=== PATIENT | male | born 1960 | race Caucasian/White ===

== ENCOUNTER → 2017-03-27 | Emergency (ER) | payer OTHER ==
[~2017-03-27] MED LIST: ACETAMINOPHEN 1000 MG/100 ML VIAL (NON FORMULARY) IVPB ONE; ACETAMINOPHEN 325 MG TABLET (FP) ONE; ACETAMINOPHEN 325 MG TABLET (FP) PO ONE; LORazepam 0.5 MG TABLET ONE; LORazepam 1 MG TABLET PO ONE; POTASSIUM CHLORIDE TABS 20 MEQ TABLET.ER (FP) PO ONE; SODIUM CHLORIDE 0.9% 1000 ML INFUS.BAG IV ONE; SODIUM CHLORIDE 1,000 ML IV STA
[2017-03-27 17:58] VITALS: BMI 28.2
--- NOTE | 2017-03-27 18:21 | PDOC ---
History of Present Illness - General Chief Complaint: Blood Pressure Problem Stated Complaint: BP PROBLEM/NUMBNESS/ TINGLY Time Seen by Provider: 03/27/17 18:06 History Source: Patient - History of Present Illness Associated Symptoms: reports: malaise, weakness. denies: chest pain, cough, diaphoresis, fever/chills, headaches, nausea/vomiting, shortness of breath, syncope Past History - Past Medical History Allergies/Adverse Reactions: Allergies Allergy/AdvReac Type Severity Reaction Status Date / Time No Known Allergies Allergy Verified 03/27/17 17:57 Home Medications: Ambulatory Orders Lisinopril [Prinivil] 10 mg PO DAILY #30 tablet 11/17/14 HTN: Yes - Psycho/Social/Smoking Cessation Hx Anxiety: No Suicidal Ideation: No Smoking History: Never smoked Have you smoked in the past 12 months: No Hx Alcohol Use: Yes (SOCIAL) Drug/Substance Use Hx: No Substance Use Type: None Hx Substance Use Treatment: No Review of Systems - Review of Systems Constitutional: Yes: Malaise. No: Chills, Fever HEENTM: No: Blurred Vision Respiratory: No: Cough, Shortness of Breath Cardiac (ROS): No: Chest Pain, Lightheadedness, Palpitations ABD/GI: No: Diarrhea, Nausea, Vomiting : No: Dysuria Neurological: Yes: Numbness, Tingling. No: Headache, Dizziness *Physical Exam - Vital Signs Last Vital Signs Temp Pulse Resp BP Pulse Ox 98.3 F 83 20 126/105 99 03/27/17 17:53 03/27/17 17:53 03/27/17 17:53 03/27/17 17:53 03/27/17 17:53 - Physical Exam General Appearance: Yes: Appropriately Dressed. No: Apparent Distress HEENT: positive: Normal Voice. negative: Scleral Icterus (R), Scleral Icterus ( L) Neck: positive: Supple. negative: Tender, Decreased range of motion Respiratory/Chest: positive: Lungs Clear, Normal Breath Sounds. negative: Respiratory Distress Cardiovascular: positive: Regular Rate, S1, S2 Gastrointestinal/Abdominal: positive: Soft. negative: Tender Extremity: positive: Normal Inspection Integumentary: positive: Dry, Warm Neurologic: positive: Fully Oriented, Alert, Normal Mood/Affect ED Treatment Course - RADIOLOGY Radiology Studies Ordered: Category Date Time Status CHEST X-RAY PORTABLE* [RAD] Stat Radiology 03/27/17 18:09 Ordered Medical Decision Making - Medical Decision Making 03/27/17 18:12 56-year-old male, history of hypertension, here with numbness and tingling to bilateral upper extremity and face that started this a.m and has been intermittent throughout the day. No neck pain, MARSH, dizziness, visual changes, focal weakness. Also reports that for the past 4 days, he has had malaise with body aches and congestion and suspect that he had "the flu". Denies any fever, chills, change to BM, CP or SOB. No recent travel or sick contacts See exam Numbness/tingling to b/l UE and face today No prior episode No new meds No neck pain No h/o anxiety BP 126/102, stable otherwise w/ unremarkable exam and no focal neuro deficits Etiology unclear at this time -check basic labs and electrolytes Malaise w/ uri Possibly viral -ekk/cxr/ labs -IVF 03/27/17 18:21
[2017-03-27 19:10] LABS: BASOPHIL 0.5 % (0-2.0); EOSINOPHIL 0.2 % (0-4.5); MCH 28.4 pg (25.7-33.7); MCHC 33.2 g/dl (32.0-35.9); MEAN CELL VOLUME 85.3 fl (80-96); MEAN PLT VOLUME 8.7 fl (7.5-11.1); NEUTROPHILS 59.6 % (42.8-82.8); PLATELET COUNT 168 K/MM3 (134-434); RDW 13.2 % (11.9-15.9); WHITE BLOOD COUNT 4.7 K/mm3 (4.0-10.0)
[2017-03-27 19:33] LABS: ALBUMIN 3.9 g/dl (3.4-5.0); ANION GAP 12 (8-16); BILIRUBIN,TOTAL 0.3 mg/dL (0.2-1.0); CALCIUM 8.8 mg/dL (8.5-10.1); CO2 30 mmol/L (21-32); CREATININE 1.7 mg/dL (0.7-1.3); GLUCOSE,RANDOM 114 mg/dL (74-106); SGOT/AST 41 U/L (15-37); SGPT/ALT 66 U/L (12-78); TOT PROT 7.6 g/dl (6.4-8.2)
[2017-03-27 19:36] LABS: ALK PHOS 35 U/L (45-117); TROPONIN I < 0.02 ng/ml (0.00-0.05)
[2017-03-27 20:06] LABS: URINE APPEARANCE CLEAR; URINE BILIRUBIN NEGATIVE (NEGATIVE); URINE BLOOD NEGATIVE (NEGATIVE); URINE COLOR LTYELLOW; URINE GLUCOSE (UA) NEGATIVE (NEGATIVE); URINE KETONE NEGATIVE (NEGATIVE); URINE LEUK ESTERASE NEGATIVE (NEGATIVE); URINE NITRITE NEGATIVE (NEGATIVE); URINE PROTEIN NEGATIVE (NEGATIVE); URINE UROBILINOGEN NEGATIVE E.U./dl (0.2-1.0)
[2017-03-27 20:15] LABS: URINE MARIJUANA THC NEGATIVE ng/ml (CUTOFF=50)
--- NOTE | 2017-03-27 20:50 | PDOC ---
*Physical Exam - Vital Signs Last Vital Signs Temp Pulse Resp BP Pulse Ox 98.3 F 83 20 126/105 99 03/27/17 17:53 03/27/17 17:53 03/27/17 17:53 03/27/17 17:53 03/27/17 17:53 ED Treatment Course - LABORATORY CBC & Chemistry Diagram: 03/27/17 18:30 03/27/17 23:28 - ADDITIONAL ORDERS Additional order review: Laboratory Results 03/27/17 03/27/17 03/27/17 19:55 19:55 18:30 Sodium 139 Potassium 3.0 L Chloride 97 L Carbon Dioxide 30 Anion Gap 12 BUN 20 H Creatinine 1.7 H D Creat Clearance w eGFR 42.21 Random Glucose 114 H Calcium 8.8 Magnesium 2.0 Total Bilirubin 0.3 D AST 41 H D ALT 66 D Alkaline Phosphatase 35 L D Creatine Kinase 147 Troponin I < 0.02 Total Protein 7.6 Albumin 3.9 Urine Color Ltyellow Urine Appearance Clear Urine pH 8.0 D Urine Protein Negative Urine Glucose (UA) Negative Urine Ketones Negative Urine Blood Negative Urine Nitrite Negative Urine Bilirubin Negative Urine Urobilinogen Negative Ur Leukocyte Esterase Negative Opiates Screen Negative Methadone Screen Negative Barbiturate Screen Negative Phencyclidine Screen Negative Ur Amphetamines Screen Negative MDMA (Ecstasy) Screen Negative Benzodiazepines Screen Negative Cocaine Screen Negative U Marijuana (THC) Screen Negative 03/27/17 18:30 RBC 5.43 MCV 85.3 MCHC 33.2 RDW 13.2 MPV 8.7 Neutrophils % 59.6 Lymphocytes % 24.7 Monocytes % 15.0 H D Eosinophils % 0.2 D Basophils % 0.5 - Medications Given in the ED: ED Medications Discontinued Medications Generic Name Dose Route Start Last Admin Trade Name Freq PRN Reason Stop Dose Admin Sodium Chloride 1,000 mls @ 1,000 mls/hr 03/27/17 18:09 03/27/17 18:00 Normal Saline - IV 03/27/17 19:08 1,000 mls/hr ASDIR STA Administration Lorazepam 1 mg 03/27/17 19:17 03/27/17 19:26 Ativan - PO 03/27/17 19:18 1 mg ONCE ONE Administration Potassium Chloride 40 meq 03/27/17 19:40 03/27/17 19:56 K-Dur - PO 03/27/17 19:41 40 meq ONCE ONE Administration Sodium Chloride 1,000 ml 03/27/17 19:41 03/27/17 19:56 Normal Saline - IV 03/27/17 19:42 1,000 ml ONCE ONE Administration Medical Decision Making - Medical Decision Making 03/27/17 20:45 Patient endorsed to me by MERRITT Burroughs. seen and examined now c/o right sided flank pain x few days p/e mild RCVAT will get UA, tylenol for pain, given ativan 1mg po for tingling in the fingers. 03/27/17 20:49 Laboratory Tests 03/27/17 18:30 Sodium 139 Potassium 3.0 L Chloride 97 L Carbon Dioxide 30 Anion Gap 12 BUN 20 H Creatinine 1.7 H D Creat Clearance w eGFR 42.21 Random Glucose 114 H AST 41 H D ALT 66 D Alkaline Phosphatase 35 L D Creatine Kinase 147 noted to have elevated bun/creat possible dehydration will continue IVF. UA has no blood but will also r/o stones. 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 Rule out kidney stones. Findings : Subsegmental dependent atelectatic changes are noted bilaterally. Calcified granulomata are noted in the lung bases. Hepatic steatosis is noted with sparing around the gallbladder fossa. The gallbladder spleen and pancreas all have a normal unenhanced appearance. The adrenal glands are unremarkable. A cortical hyperdense lesion in the right kidney measures 1.8 cm in diameter. Punctate nonobstructing calculi noted in the right kidney. The kidneys have a normal unenhanced appearance. There is no hydronephrosis or hydroureter. The gastrointestinal tract does not appear obstructed. No thickened or dilated bowel is seen. The appendix has a normal appearance. There is no mesenteric infiltration or free fluid. The urinary bladder, prostate and seminal vesicles are unremarkable. No abdominal or pelvic adenopathy is seen. No lytic or blastic destructive osseous lesions are seen. Impression: Nonobstructing calculi noted in the right kidney. No obstructing urinary tract calculi or evidence of urinary tract obstruction seen. No inflammatory process identified in the abdomen or pelvis. No abdominal mass, adenopathy or collection seen. THIS DOCUMENT HAS BEEN ELECTRONICALLY SIGNED Juan Carlos Bustos M.D. 03/27/2017 23: 23 VILMA Wen Please call Imaging Director Drug [phone] ([phone]) with questions. 03/28/17 00:53 Laboratory Tests 03/27/17 23:28 Sodium 140 Potassium 3.2 L Chloride 102 Carbon Dioxide 28 Anion Gap 10 BUN 19 H Creatinine 1.3 D Random Glucose 106 Calcium 8.4 L repeat chemistry improved with hydration will inst to continue fluids and bananas I discussed the physical exam findings, ancillary test results and final diagnoses with the patient. I answered all of the patient's questions. The patient was satisfied with the care received and felt comfortable with the discharge plan and treatment plan. The Patient agrees to follow up with the primary care physician within 24-72 hours. *DC/Admit/Observation/Transfer Diagnosis at time of Disposition: Weakness, Paresthesia - Discharge Dispostion Disposition: HOME Condition at time of disposition: Stable - Referrals Referrals: Roderick Andino MD [Primary Care Provider] - - Patient Instructions Printed Discharge Instructions: DI for Muscle Weakness Additional Instructions: YOU MUST FOLLOW WITH YOUR PMD WITHIN 1-2 DAYS, CONTINUE TO HYDRATE, EAT BANANA AND DRINK ORANGE JUICE TO INCREASE THE POTASSIUM, RETURN TO THE ED IF WORSENING
[2017-03-28 00:22] LABS: ANION GAP 10 (8-16); CALCIUM 8.4 mg/dL (8.5-10.1); CO2 28 mmol/L (21-32); CREATININE 1.3 mg/dL (0.7-1.3); GLUCOSE,RANDOM 106 mg/dL (74-106)
[2017-03-28 01:20] VITALS: BP 150/94; PULSE 68; TEMP 98.2
--- NOTE | 2017-03-28 14:20 | EKG ---
Test Reason : Blood Pressure : / mmHG Vent. Rate : 070 BPM Atrial Rate : 070 BPM P-R Int : 146 ms QRS Dur : 098 ms QT Int : 382 ms P-R-T Axes : 045 -16 049 degrees QTc Int : 412 ms NORMAL SINUS RHYTHM POSSIBLE LEFT ATRIAL ENLARGEMENT INCOMPLETE RIGHT BUNDLE BRANCH BLOCK NONSPECIFIC ST AND T WAVE ABNORMALITY ABNORMAL ECG WHEN COMPARED WITH ECG OF 16-NOV-2014 19:14, T WAVE VARIATION Confirmed by HEMA SARAVIA, FAN ([id number]) on 03/28/2017 2:20:41 PM Referred By: Confirmed By:FAN GARRIDO MD
== END | disposition home or self-care (01) ==
LOC: JER 17:51
PROC: 3E0337Z Introduction of Electrolytic and Water Balance Substance into Peripheral Vein, Percutaneous Approach (ICD-10-PCS; principal; 2017-03-27)
DX: R20.8 Other disturbances of skin sensation (principal); R53.1 Weakness; E87.6 Hypokalemia; I10 Essential (primary) hypertension
CPT/HCPCS: 36415; 71010-TC; 74176-TC; 80048; 80053; 80307; 81003; 82550; 83735; 84484; 85025; 93005; 93010; 99284-25

== ENCOUNTER 2018-12-22 06:39 | Observation (INO) | payer OTHER ==
--- NOTE | 2018-12-22 07:11 | PDOC ---
History of Present Illness - General Chief Complaint: Blood Pressure Problem Stated Complaint: HEADACHE,BP PROBLEM - History of Present Illness Initial Comments: The pt is a 58M w/ a history of HTN who presents for evaluation for elevated BP. The pt reports 3 days of b/l, gradual onset MARSH, blurry vision, intermittent shortness of breath. He also reports intermittent chest discomfort but reports that it is s/p working out and not during exertion. He also endorses b/l intermittent hand tingling. Endorses NBNB vomiting x1 yesterday. In the ED, he currently denies chest pain or pressure. Denies fevers/chills, diarrhea, blood in stool or vomit, dysuria, hematuria. Reports intermittent compliance with BP medications Lisinopril 30mg and HCTZ 50mg daily PSH: Denies Allergies: Denies SH: Social EtOH, Denies tobacco and illicit drug use 12/22/18 07:55 Past History - Past Medical History Allergies/Adverse Reactions: Allergies Allergy/AdvReac Type Severity Reaction Status Date / Time No Known Allergies Allergy Verified 12/22/18 06:50 Home Medications: Ambulatory Orders Lisinopril [Prinivil -] 40 mg PO DAILY #30 tablet 12/23/18 HTN: Yes - Suicide/Smoking/Psychosocial Hx Smoking History: Never smoked Have you smoked in the past 12 months: No Information on smoking cessation initiated: No Hx Alcohol Use: No Drug/Substance Use Hx: No Substance Use Type: None Hx Substance Use Treatment: No Review of Systems - Review of Systems Able to Perform ROS?: Yes Comments:: GENERAL/CONSTITUTIONAL: No fever or chills. No weakness HEAD, EYES, EARS, NOSE AND THROAT: No change in vision. No ear pain or discharge. No sore throat CARDIOVASCULAR: No chest pain or shortness of breath RESPIRATORY: Denies cough, hemoptysis GENITOURINARY: No dysuria, frequency, or change in urination SKIN: No rash NEUROLOGIC: No headache, vertigo, loss of consciousness ENDOCRINE: No increased thirst. No abnormal weight change ALLERGIC/IMMUNOLOGIC: No hives or skin allergy 12/22/18 07:11 Is the patient limited Azeri proficient: No *Physical Exam - Vital Signs Last Vital Signs Temp Pulse Resp BP Pulse Ox 97.5 F L 61 18 171/119 H 100 12/22/18 06:50 12/22/18 06:50 12/22/18 06:50 12/22/18 06:50 12/22/18 06:50 - Physical Exam Comments: GENERAL: Awake, alert, and oriented to person/place/time, in no acute distress HEAD: No signs of trauma, normocephalic, atraumatic EYES: PERRLA, EOMI, sclera anicteric, conjunctiva clear ENT: Hearing grossly normal, nares patent, oropharynx clear without exudates. Moist mucosa LUNGS: No distress, speaks full sentences, clear to auscultation bilaterally HEART: Regular rate and rhythm, normal S1 and S2, no murmurs appreciated, peripheral pulses normal and equal bilaterally ABDOMEN: Soft, nontender, normoactive bowel sounds. No guarding, no rebound EXTREMITIES: Normal inspection, Normal range of motion, no edema. No clubbing or cyanosis NEUROLOGICAL: Cranial nerves II through XII grossly intact. Normal speech, normal gait, no focal sensorimotor deficits SKIN: Warm, Dry 12/22/18 07:11 Moderate Sedation - Procedure Monitoring Vital Signs: Procedure Monitoring Vital Signs Temperature 97.5 F L 12/22/18 06:50 Pulse Rate 61 12/22/18 06:50 Respiratory Rate 18 12/22/18 06:50 Blood Pressure 171/119 H 12/22/18 06:50 O2 Sat by Pulse Oximetry (%) 100 12/22/18 06:50 ED Treatment Course - LABORATORY CBC & Chemistry Diagram: 12/23/18 06:35 12/23/18 06:35 Medical Decision Making - Medical Decision Making The pt is a 58M who presents for evaluation of HTN crisis ED Course CMP, CBC, Cardiac enzymes CT Head to evaluate for ICH CXR ECG Ofirmev and Reglan for symptomatic relief Hypokalemia 2.9, will replete Trop I neg No leukocytosis No anemia CXR w/o acute pathology 12/22/18 08:38 Toradol 15mg IV once for MARSH 12/22/18 09:47 MARSH improved Will repeat Trop I and BMP s/p K repletion 12/22/18 12:04 Repeat Trop I 0.04 from <0.02, will admit for tele obs for HTN crisis *DC/Admit/Observation/Transfer Diagnosis at time of Disposition: Hypertensive crisis - Discharge Dispostion Condition at time of disposition: Good Decision to Admit order: Yes - Referrals - Patient Instructions - Post Discharge Activity
[2018-12-22 07:42] LABS: BASO % 0.4 % (0-2.0); EOS % 1.4 % (0-4.5); HEMOGLOBIN 15.5 GM/dL (11.7-16.9); LYMPH % 23.3 % (8-40); MCH 30.7 pg (25.7-33.7); MCHC 35.9 g/dl (32.0-35.9); MEAN CELL VOLUME 85.4 fl (80-96); MEAN PLT VOLUME 8.2 fl (7.5-11.1); MONO % 6.4 % (3.8-10.2); NEUT % 68.5 % (42.8-82.8); PLATELET COUNT 179 K/MM3 (134-434); RBC 5.04 M/mm3 (4.00-5.60); RDW 13.5 % (11.9-15.9); WHITE BLOOD COUNT 7.7 K/mm3 (4.0-10.0)
[2018-12-22] MEDS ORDERED: METOCLOPRAMIDE HCL INJECTION 10 MG/2 ML VIAL IVPUSH ONE (07:43)
[2018-12-22] MEDS ORDERED: ACETAMINOPHEN 1000 MG/100 ML VIAL (NON FORMULARY) IVPB ONE (07:43)
[2018-12-22] MEDS ORDERED: ACETAMINOPHEN INJECTION 100 ML IVPB ONE (07:49)
[2018-12-22] MEDS ORDERED: METOCLOPRAMIDE HCL INJECTION 10 MG/2 ML VIAL ONE (07:49)
--- NOTE | 2018-12-22 08:06 | PDOC ---
Attending Attestation - Resident Resident Name: Desmond Esparza - ED Attending Attestation I have performed the following: I have examined & evaluated the patient, The case was reviewed & discussed with the resident, I agree w/resident's findings & plan, Exceptions are as noted - HPI HPI: 12/22/18 07:59 58 M with h/o HTN, gout presents to ED with intermittent SOB, MARSH, vomiting, and elevated BP. Pt states that for the past 3 days or so, he has had BPs that have been >200 systolic. Pt endorses concurrent headache and one episode of vomiting yesterday. Denies any chest pain but states that once in a while, he will feel SOB. Denies any leg swelling. Denies orthopnea. Pt states that he has been intermittently noncompliant with his BP meds, as he states that they trigger gout flares. - Physicial Exam PE: 12/22/18 08:14 GENERAL: Awake, alert, and fully oriented, in no acute distress. HEAD: No signs of trauma EYES: PERRLA, EOMI, sclera anicteric, conjunctiva clear ENT: Auricles normal inspection, hearing grossly normal, nares patent, oropharynx clear without exudates. Moist mucosa NECK: Nontender, no stepoffs, Normal ROM, supple, no lymphadenopathy, JVD, or masses LUNGS: Breath sounds equal, clear to auscultation bilaterally. No wheezes, and no crackles HEART: Regular rate and rhythm, normal S1 and S2, no murmurs, rubs or gallops ABDOMEN: Soft, nontender, normoactive bowel sounds. No guarding, no rebound. No masses EXTREMITIES: Normal range of motion, no edema. No clubbing or cyanosis. No cords, erythema, or tenderness NEUROLOGICAL: Cranial nerves II through XII intact. 5/5 strength and sensation in all extremities, Normal speech, normal gait, normal cerebellar function SKIN: Warm, Dry, normal turgor, no rashes or lesions noted. - Medical Decision Making 12/22/18 08:14 58 M with elevated BP, MARSH, vomiting, SOB. EKG today shows new lateral TWIs. Will need ACS r/o. Given MARSH and vomiting, will obtain head CT to r/o ICH. Pt with no clinical signs of CHF. - Labs, trop - CT head - Tylenol, reglan 12/22/18 09:38 Labs notable for K 2.9, likely 2/2 HCTZ use Trop negative Will send 2nd trop and give cards f/u CT head negative 12/22/18 13:12 2nd trop uptrending from <.02 to 0.04, will continue to trend
[2018-12-22 08:14] LABS: ALK PHOS 44 U/L (45-117); ANION GAP 8 MMOL/L (8-16); BILIRUBIN,TOTAL 0.8 mg/dL (0.2-1); BLOOD UREA NITROGEN 14 mg/dL (7-18); CALCIUM 8.8 mg/dL (8.5-10.1); CHLORIDE 97 mmol/L (98-107); CO2 27 mmol/L (21-32); GLUCOSE,RANDOM 117 mg/dL (74-106); SGOT/AST 19 U/L (15-37); SGPT/ALT 36 U/L (13-61); SODIUM 132 mmol/L (136-145); TOT PROT 7.1 g/dl (6.4-8.2)
[2018-12-22 08:32] LABS: POTASSIUM 2.9 mmol/L (3.5-5.1)
[2018-12-22] MEDS ORDERED: KCL 10 MEQ IVPB 20 MEQ/200 ML INFUS.BAG IVPB ONE (09:34)
[2018-12-22] MEDS ORDERED: POTASSIUM CHLORIDE TABS 20 MEQ TABLET.ER (FP) PO ONE ×3 (09:37→09:55)
[2018-12-22] MEDS ORDERED: KETOROLAC TROMETHAMINE 15 MG/ML VIAL IVPUSH ONE (09:47)
[2018-12-22] MEDS ORDERED: KETOROLAC TROMETHAMINE 30 MG/1 ML VIAL ONE (09:51)
[2018-12-22] MEDS: KCL 10 MEQ IVPB 10 MEQ/100 ML INFUS.BAG IVPB SCH ×2 (10:00→10:01)
[2018-12-22] MEDS ORDERED: ASPIRIN 81 MG CHEWABLE TABLETS PO ONE (10:16)
[2018-12-22] MEDS ORDERED: ASPIRIN 81 MG CHEWABLE TABLETS ONE (10:19)
[2018-12-22 12:45] LABS: ANION GAP 8 MMOL/L (8-16); BLOOD UREA NITROGEN 14 mg/dL (7-18); CALCIUM 8.5 mg/dL (8.5-10.1); CHLORIDE 100 mmol/L (98-107); CO2 25 mmol/L (21-32); CREATININE 1.1 mg/dL (0.55-1.3); GLUCOSE,RANDOM 159 mg/dL (74-106); POTASSIUM 3.2 mmol/L (3.5-5.1); SODIUM 132 mmol/L (136-145)
--- NOTE | 2018-12-22 14:39 | PN ---
Teaching Attending Note Name of Resident: Jimmy Peña ATTENDING PHYSICIAN STATEMENT I saw and evaluated the patient. I reviewed the resident's note and discussed the case with the resident. I agree with the resident's findings and plan as documented. SUBJECTIVE: Patient is a 58yo male with PMHx of HTN, gout presents to ED with MARSH, vomiting , and elevated BP. At the time of interview, patient was feeling better, headache and blood pressure improved post IV Tylenol. OBJECTIVE: Vital Signs Temperature 97.5 F L 12/22/18 06:50 Pulse Rate 56 L 12/22/18 09:36 Respiratory Rate 18 12/22/18 09:36 Blood Pressure 155/94 12/22/18 09:36 O2 Sat by Pulse Oximetry (%) 98 12/22/18 09:36 Initial Vital Signs Temp Pulse Resp BP Pulse Ox 97.5 F L 61 18 171/119 H 100 12/22/18 06:50 12/22/18 06:50 12/22/18 06:50 12/22/18 06:50 12/22/18 06:50 Vital Signs Temperature 97.5 F L 12/22/18 06:50 Pulse Rate 60 12/22/18 15:00 Respiratory Rate 16 12/22/18 15:00 Blood Pressure 132/93 12/22/18 15:00 O2 Sat by Pulse Oximetry (%) 99 12/22/18 15:00 GENERAL: Awake, alert, and fully oriented, in no acute distress. HEAD: No signs of trauma EYES: PERRLA, EOMI, sclera anicteric, conjunctiva clear ENT: oropharynx clear without exudates. Moist mucosa NECK: Nontender, supple, no lymphadenopathy, JVD, or masses LUNGS: Breath sounds equal, clear to auscultation bilaterally. No wheezes, and no crackles HEART: Regular rate and rhythm, normal S1 and S2, no murmurs, rubs or gallops ABDOMEN: Soft, nontender, normoactive bowel sounds. No guarding, no rebound. No masses EXTREMITIES: Normal range of motion, no edema. No clubbing or cyanosis. NEUROLOGICAL: Cranial nerves II through XII intact. Normal speech, normal gait. SKIN: Warm, Dry, normal turgor, no rashes or lesions noted. CBCD WBC 7.7 K/mm3 (4.0-10.0) 12/22/18 07:30 RBC 5.04 M/mm3 (4.00-5.60) 12/22/18 07:30 Hgb 15.5 GM/dL (11.7-16.9) 12/22/18 07:30 Hct 43.0 % (35.4-49) 12/22/18 07:30 MCV 85.4 fl (80-96) 12/22/18 07:30 MCHC 35.9 g/dl (32.0-35.9) 12/22/18 07:30 RDW 13.5 % (11.9-15.9) 12/22/18 07:30 Plt Count 179 K/MM3 (134-434) 12/22/18 07:30 MPV 8.2 fl (7.5-11.1) 12/22/18 07:30 CMP Sodium 132 mmol/L (136-145) L 12/22/18 11:15 Potassium 3.2 mmol/L (3.5-5.1) L 12/22/18 11:15 Chloride 100 mmol/L (98-107) 12/22/18 11:15 Carbon Dioxide 25 mmol/L (21-32) 12/22/18 11:15 Anion Gap 8 MMOL/L (8-16) 12/22/18 11:15 BUN 14 mg/dL (7-18) 12/22/18 11:15 Creatinine 1.1 mg/dL (0.55-1.3) 12/22/18 11:15 Creat Clearance w eGFR 69.24 (>60) 12/22/18 11:15 Random Glucose 159 mg/dL (74-106) H 12/22/18 11:15 Calcium 8.5 mg/dL (8.5-10.1) 12/22/18 11:15 Total Bilirubin 0.8 mg/dL (0.2-1) 12/22/18 07:30 AST 19 U/L (15-37) 12/22/18 07:30 ALT 36 U/L (13-61) 12/22/18 07:30 Alkaline Phosphatase 44 U/L (45-117) L 12/22/18 07:30 Total Protein 7.1 g/dl (6.4-8.2) 12/22/18 07:30 Albumin 4.0 g/dl (3.4-5.0) 12/22/18 07:30 CARDIAC ENZYMES Creatine Kinase 138 U/L (26-308) 12/22/18 07:30 Troponin I 0.04 ng/ml (0.00-0.05) 12/22/18 11:15 Home Medications Medication Instructions Recorded Hydrochlorothiazide [Hctz -] 50 mg PO DAILY 03/27/17 Lisinopril [Zestril] 30 mg PO DAILY 03/27/17 EKG: sinus, LVH with strain pattern CXR: no congestion Echo 12/2018: mild LVH (conc), nl LVSF (50-55%). nl RV. mild MR/TR ASSESSMENT AND PLAN: Patient is a 58yo male with PMHx of HTN, gout presents to ED with MARSH, vomiting , and elevated BP. At the time of interview, patient was feeling better, headache and blood pressure improved post IV Tylenol. # hypertensive Urgency , stopped the Hctz due to electrolyte imbalance. will increase the dose of lisinopril to 40mg , stop Hctz. Can't give him Norvasc since having swelling of Les. # Acute hyponatremia: will discontinue HCTZ # Acute hypokalemia: Hold Hctz , will give him Kdur. # Elevated BS will monitor. DVT px: Scds. Heparin sq
--- NOTE | 2018-12-22 14:51 | HP ---
CHIEF COMPLAINT: high blood pressure PCP: HISTORY OF PRESENT ILLNESS: 58 M with h/o HTN, gout presents to ED with intermittent SOB, MARSH, vomiting, and elevated BP. Pt states that for the past 3 days or so, he has had BPs that have been >200 systolic with associated with blurry vision and numbness of upper ext. Denies any chest pain but states that once in a while, he will feel SOB. Denies any leg swelling. Denies orthopnea.He has not been taking his BP meds because he feels as if they cause gout flares. He took his medication just prior to coming to ER today. Denies CP, palpitations, abdominal pain, nausea , vomiting, fever or chills. ER course was notable for: (1) EKG shows LVH (2) trop <0.02 then repeat 0.04 (3)hypokalemia- given 40meq K Recent Travel:denies PAST MEDICAL HISTORY:gout and htn PAST SURGICAL HISTORY:denies Social History: Smoking:denies Alcohol:socially Drugs: denies Family History: Father and brother with heart disease. Allergies No Known Allergies Allergy (Verified 12/22/18 06:50) HOME MEDICATIONS: Home Medications Medication Instructions Recorded Hydrochlorothiazide [Hctz -] 50 mg PO DAILY 03/27/17 Lisinopril [Zestril] 30 mg PO DAILY 03/27/17 REVIEW OF SYSTEMS CONSTITUTIONAL: Absent: fever, chills, diaphoresis, generalized weakness, malaise, loss of appetite, weight change HEENT: Absent: rhinorrhea, nasal congestion, throat pain, throat swelling, difficulty swallowing, mouth swelling, ear pain, eye pain, visual changes CARDIOVASCULAR: Absent: chest pain, syncope, palpitations, irregular heart rate, lightheadedness , peripheral edema RESPIRATORY: Absent: cough, shortness of breath, dyspnea with exertion, orthopnea, wheezing, stridor, hemoptysis GASTROINTESTINAL: Absent: abdominal pain, abdominal distension, nausea, vomiting, diarrhea, constipation, melena, hematochezia GENITOURINARY: Absent: dysuria, frequency, urgency, hesitancy, hematuria, flank pain, genital pain MUSCULOSKELETAL: Absent: myalgia, arthralgia, joint swelling, back pain, neck pain SKIN: Absent: rash, itching, pallor HEMATOLOGIC/IMMUNOLOGIC: Absent: easy bleeding, easy bruising, lymphadenopathy, frequent infections ENDOCRINE: Absent: unexplained weight gain, unexplained weight loss, heat intolerance, cold intolerance NEUROLOGIC: headache, paresthesias Absent: , dizziness, unsteady gait, seizure, mental status changes, bladder or bowel incontinence PSYCHIATRIC: Absent: anxiety, depression, suicidal or homicidal ideation, hallucinations. PHYSICAL EXAMINATION Vital Signs - 24 hr 12/22/18 12/22/18 06:50 09:36 Temperature 97.5 F L Pulse Rate 61 Pulse Rate [ 56 L Left Radial] Respiratory 18 18 Rate Blood Pressure 171/119 H Blood Pressure 155/94 [Left Arm] O2 Sat by Pulse 100 98 Oximetry (%) GENERAL: AAOx3 HEAD: NCAT EYES: PERRLA,EOMI sclera anicteric, conjunctiva clear. No lid lag. EARS, NOSE, THROAT: Moist mucous membranes. NECK:supple without lymphadenopathy, JVD, or masses. LUNGS: CTAB . No wheezes, and no crackles. No accessory muscle use. HEART: RRR, normal S1 and S2 without murmur, rub or gallop. ABDOMEN: Soft, NTND, NABS, no guarding, no rebound, no masses. No hepatomegaly or splenomegaly. MUSCULOSKELETAL: Normal range of motion at all joints. No bony deformities or tenderness. No CVA tenderness. LOWER EXTREMITIES: 2+ pulses, warm, well-perfused. No calf tenderness. No peripheral edema. NEUROLOGICAL: Cranial nerves II-XII intact. Normal speech. PSYCHIATRIC: Cooperative. Good eye contact. Appropriate mood and affect. SKIN: Warm, dry, normal turgor, no rashes or lesions noted, normal capillary refill. Laboratory Results - last 24 hr 12/22/18 12/22/18 12/22/18 07:30 07:30 11:15 WBC 7.7 RBC 5.04 Hgb 15.5 Hct 43.0 MCV 85.4 MCH 30.7 MCHC 35.9 RDW 13.5 Plt Count 179 MPV 8.2 Absolute Neuts (auto) 5.3 Neutrophils % 68.5 Lymphocytes % 23.3 Monocytes % 6.4 Eosinophils % 1.4 D Basophils % 0.4 Nucleated RBC % 0 Sodium 132 L 132 L Potassium 2.9 L* 3.2 L Chloride 97 L 100 Carbon Dioxide 27 25 Anion Gap 8 8 BUN 14 14 Creatinine 1.0 1.1 Creat Clearance w eGFR 77.30 69.24 Random Glucose 117 H 159 H Calcium 8.8 8.5 Total Bilirubin 0.8 AST 19 ALT 36 Alkaline Phosphatase 44 L Creatine Kinase 138 Troponin I < 0.02 0.04 Total Protein 7.1 Albumin 4.0 ASSESSMENT/PLAN: 58 M with h/o HTN, gout presents to ED with intermittent SOB, MARSH, vomiting, and elevated BP placed on observation for hypertensive urgency. Problem List - Problem (1) Hypertensive urgency Assessment/Plan: 2/2 medication non compliance. * improved in ER without additional meds. * Cardiology consult appreciated. * Told to DC HCTZ because e-lyte abnormalities and gout * increased lisinoprol to 40mg PO daily (2) Headache Assessment/Plan: most likely 2/2 elevated BP * slowly improving on its own. * Tylenol PRN. (3) Hypokalemia Assessment/Plan: 2/2 HCTZ * replete and recheck * given 40Meq K (4) Abnormal EKG Assessment/Plan: * Cardiology consult appreciated. * EKG likely LVH with strain pattern, trop indeterminate range with flat trend, not consistent with ACS * Echo pending if benign no further inpatient workup. * Advised to follow up as outpatient Visit type - Emergency Visit Emergency Visit: Yes ED Registration Date: 12/22/18 Care time: The patient presented to the Emergency Department on the above date and was hospitalized for further evaluation of their emergent condition. - New Patient This patient is new to me today: Yes Date on this admission: 12/22/18 - Critical Care Critical Care patient: No
--- NOTE | 2018-12-22 15:10 | CON.CARD ---
Consult Consult Specialty:: Cardiology Referred by:: Medicine Reason for Consultation:: HTN, abnormal EKG - History of Present Illness Chief Complaint: nausea, headache History of Present Illness: 58M h/o HTN, gout p/w dyspnea, headache, vomiting, HTN. BP >200s systolic the last few days, not always compliant with meds due to gout worsening with HCTZ. on HCTZ and lisinopril at home, not taking consistently, had stopped both over the last several days. Was on amlodipine in the past which he stopped due to edema. Currently feels at baseline, no chest pain, palps, dizziness, lightheadedness. 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 History of Recent Travel: No Home Medications - Allergies Allergies/Adverse Reactions: Allergies Allergy/AdvReac Type Severity Reaction Status Date / Time No Known Allergies Allergy Verified 12/22/18 06:50 - Home Medications Home Medications: Ambulatory Orders Hydrochlorothiazide [Hctz -] 50 mg PO DAILY 03/27/17 Lisinopril [Zestril] 30 mg PO DAILY 03/27/17 Family Disease History - Family Disease History Family Disease History: Other: Father (alive HTN), Mother (alive healthy) Review of Systems - Review of Systems Constitutional: reports: No Symptoms Eyes: reports: No Symptoms HENT: reports: No Symptoms Neck: reports: No Symptoms Cardiovascular: reports: No Symptoms Respiratory: reports: No Symptoms Gastrointestinal: reports: No Symptoms Genitourinary: reports: No Symptoms Musculoskeletal: reports: No Symptoms Integumentary: reports: No Symptoms Neurological: reports: No Symptoms Endocrine: reports: No Symptoms Hematology/Lymphatic: reports: No Symptoms Psychiatric: reports: No Symptoms Vital Signs: Vital Signs Temperature 97.5 F L 12/22/18 06:50 Pulse Rate 56 L 12/22/18 09:36 Respiratory Rate 18 12/22/18 09:36 Blood Pressure 155/94 12/22/18 09:36 O2 Sat by Pulse Oximetry (%) 98 12/22/18 09:36 Constitutional: Yes: Well Nourished, No Distress, Calm Eyes: Yes: Conjunctiva Clear, EOM Intact HENT: Yes: Atraumatic, Normocephalic Neck: Yes: Supple, Trachea Midline Respiratory: Yes: Regular, CTA Bilaterally Gastrointestinal: Yes: Normal Bowel Sounds, Soft Cardiovascular: Yes: Regular Rate and Rhythm JVD: No Carotid Bruit: No PMI: Non-Displaced Heart Sounds: Yes: S1, S2 Murmur: No: Systolic Murmur Musculoskeletal: No: Back Pain Extremities: No: Cold Edema: No Peripheral Pulses WNL: Yes Peripheral Pulses: 2+ Left Doralis Pedis, 2+ Right Dorsalis Pedis Integumentary: No: Jaundice Neurological: Yes: Alert, Oriented Psychiatric: No: Agitated - Other Data Labs, Other Data: CBC, BMP 12/22/18 07:30 12/22/18 11:15 Troponin, BNP 12/22/18 12/22/18 07:30 11:15 Troponin I < 0.02 0.04 Troponin, BNP 12/22/18 12/22/18 07:30 11:15 Troponin I < 0.02 0.04 Assessment/Plan EKG: sinus, LVH with strain pattern CXR: no congestion 58M h/o HTN, gout p/w dyspnea, headache, vomiting, HTN Hypertensive urgency - BP improved with resolution of headache, nausea, feels at baseline - noncompliant with BP meds - dc HCTZ for electrolyte abnormalities, gout worsening - agree with increasing lisinopril to 40 mg daily - patient advised to take as directed, unlikely to have been related to gout flares Abnormal EKG - EKG likely LVH with strain pattern, trop indeterminate range with flat trend, not consistent with ACS - Echo pending if benign no further inpatient workup. Advised to follow up as outpatient hypokalemia, hyponatremia - agree with dc HCTZ, replete lytes gout - manage per primary
--- NOTE | 2018-12-22 16:11 | ECHO ---
Name: YANY HOPSON Exam:Adult Echocardiogram Study Date: 12/22/2018 03:31 PM Age: 58 yrs Reason For Study: HTN Height: 74 in Weight: 225 lb BSA: 2.3 m2 MMode/2D Measurements & Calculations IVSd: 1.1 cm Ao root diam: 3.2 cm LVIDd: 5.0 cm LA dimension: 2.9 cm LVIDs: 3.5 cm LVPWd: 1.2 cm LVPWs: 2.1 cm EDV(Teich): 120.3 ml ESV(Teich): 51.7 ml LVOT diam: 2.0 cm RV S Dannie: 14.5 cm/sec Doppler Measurements & Calculations MV E max dannie: 40.7 cm/sec Ao V2 max: 131.2 cm/sec MV A max dannie: 64.0 cm/sec Ao max P.9 mmHg MV E/A: 0.64 Ao V2 mean: 84.4 cm/sec MV dec time: 0.20 sec Ao mean P.3 mmHg Ao V2 VTI: 27.6 cm MARILEE(I,D): 1.9 cm2 MARILEE(V,D): 2.1 cm2 LV V1 max P.9 mmHg SV(LVOT): 53.3 ml LV V1 mean P.5 mmHg LV V1 max: 85.4 cm/sec LV V1 mean: 55.6 cm/sec LV V1 VTI: 16.6 cm TR max dannie: 219.8 cm/sec PA V2 max: 96.5 cm/sec TR max P.4 mmHg PA max P.7 mmHg Med Peak E' Dannie: 4.2 cm/sec Med E/e': 9.6 Left Ventricle There is mild concentric left ventricular hypertrophy. Left ventricular systolic function is normal. Ejection Fraction = 50-55%. The transmitral spectral Doppler flow pattern is suggestive of impaired LV relaxat ion. Right Ventricle The right ventricle is normal in size and function. Atria Normal left and right atrial size and function. The interatrial septum is intact with no evidence for an atrial septal defect. Mitral Valve The mitral valve is normal in structure and function. There is no mitral valve stenosis. There is mil d mitral regurgitation. Tricuspid Valve The tricuspid valve is normal in structure and function. There is mild tricuspid regurgitation. Aortic Valve The aortic valve opens well. No hemodynamically significant valvular aortic stenosis. No aortic regur gitation is present. Pulmonic Valve The pulmonic valve is not well seen, but is grossly normal. There is no pulmonic valvular stenosis. Great Vessels The aortic root is normal size. Pericardium/Pleura There is no pericardial effusion. Interpretation Summary There is mild concentric left ventricular hypertrophy. Left ventricular systolic function is normal. Ejection Fraction = 50-55%. The transmitral spectral Doppler flow pattern is suggestive of impaired LV relaxation. The right ventricle is normal in size and function. There is mild mitral regurgitation. There is no pericardial effusion. MD Freitas *Mo 12/22/2018 04:10 PM
[2018-12-22 18:30] VITALS: BMI 29.0
[2018-12-23 03:20] VITALS: TEMP 98
[2018-12-23 07:24] LABS: BASO % 0.4 % (0-2.0); EOS % 2.4 % (0-4.5); HEMATOCRIT 42.5 % (35.4-49); HEMOGLOBIN 14.8 GM/dL (11.7-16.9); LYMPH % 34.6 % (8-40); MCH 29.8 pg (25.7-33.7); MCHC 34.9 g/dl (32.0-35.9); MEAN CELL VOLUME 85.4 fl (80-96); MEAN PLT VOLUME 8.6 fl (7.5-11.1); MONO % 8.8 % (3.8-10.2); NEUT % 53.8 % (42.8-82.8); PLATELET COUNT 181 K/MM3 (134-434); RBC 4.97 M/mm3 (4.00-5.60); RDW 13.4 % (11.9-15.9)
[2018-12-23 07:34] LABS: ALBUMIN 3.6 g/dl (3.4-5.0); ALK PHOS 44 U/L (45-117); ANION GAP 5 MMOL/L (8-16); BILIRUBIN,TOTAL 0.6 mg/dL (0.2-1); BLOOD UREA NITROGEN 18 mg/dL (7-18); CALCIUM 8.5 mg/dL (8.5-10.1); CHLORIDE 104 mmol/L (98-107); CO2 29 mmol/L (21-32); CREATININE 1.3 mg/dL (0.55-1.3); GLUCOSE,RANDOM 99 mg/dL (74-106); MAGNESIUM 2.1 mg/dL (1.8-2.4); PHOSPHOROUS 3.6 mg/dL (2.5-4.9); POTASSIUM 3.3 mmol/L (3.5-5.1); SGOT/AST 16 U/L (15-37); SGPT/ALT 34 U/L (13-61); SODIUM 138 mmol/L (136-145); TOT PROT 6.6 g/dl (6.4-8.2)
--- NOTE | 2018-12-23 08:59 | PN ---
Progress Note, Physician Chief Complaint: vomiting History of Present Illness: feels well in USOH. denies cp, sob, palpitations, syncope - Objective Vital Signs: Vital Signs Temperature 98 F 12/23/18 04:44 Pulse Rate 62 12/23/18 04:44 Respiratory Rate 16 12/23/18 05:34 Blood Pressure 147/91 12/23/18 04:44 O2 Sat by Pulse Oximetry (%) 96 12/23/18 05:34 Constitutional: Yes: Well Nourished, No Distress, Calm Cardiovascular: Yes: Regular Rate and Rhythm, S1, S2. No: Gallop, Murmur, S4 Respiratory: Yes: Regular, CTA Bilaterally. No: Accessory Muscle Use, Rales, Wheezes Extremities: No: Cold Edema: No Neurological: Yes: Alert, Oriented Psychiatric: No: Agitated Labs: CBC, BMP 12/23/18 06:35 12/23/18 06:35 Assessment/Plan EKG: sinus, LVH with strain pattern CXR: no congestion Echo 12/2018: mild LVH (conc), nl LVSF (50-55%). nl RV. mild MR/TR 58M h/o HTN, gout p/w dyspnea, headache, vomiting, HTN Hypertensive urgency - BP improved with resolution of headache, nausea, feels at baseline - noncompliant with BP meds at home - HCTZ held here for electrolyte abnormalities, gout worsening - lisinopril increased to 40 mg daily - patient advised to take as directed and that this does not cause gout - 12/23: BPs 140s/90s. same meds, outpt bp followup--pt advised of importance of this to prevent chf/cv disease in future, in light of LVH on ekg/echo. he verbalized understanding. card given to call us for appt (routine) Abnormal EKG - EKG likely LVH with strain pattern. uncontrolled BP history with echo showing concentric LVH - no s/sx of ACS - bp control as doing hypokalemia, hyponatremia - agree with dc HCTZ, replete lytes as doing gout - manage per primary ok for d/c from cv p.o.v.
--- NOTE | 2018-12-23 10:56 | DS ---
Physical Exam: SUBJECTIVE: Patient seen and examined Patient is feeling better with no acute distress. No further headache. Familt member at bedside. OBJECTIVE: Vital Signs Temperature 98 F 12/23/18 04:44 Pulse Rate 62 12/23/18 04:44 Respiratory Rate 16 12/23/18 05:34 Blood Pressure 147/91 12/23/18 04:44 O2 Sat by Pulse Oximetry (%) 96 12/23/18 05:34 Initial Vital Signs Temp Pulse Resp BP Pulse Ox 97.5 F L 61 18 171/119 H 100 12/22/18 06:50 12/22/18 06:50 12/22/18 06:50 12/22/18 06:50 12/22/18 06:50 PHYSICAL EXAM GENERAL: The patient is awake, alert, and fully oriented, in no acute distress. HEAD: Normal with no signs of trauma. EYES: PERRL, extraocular movements intact, sclera anicteric, conjunctiva clear. ENT: Ears normal, oropharynx clear without exudates, moist mucous membranes. NECK: Trachea midline, full range of motion, supple. LUNGS: Breath sounds equal, clear to auscultation bilaterally, no wheezes, no crackles, no accessory muscle use. HEART: Regular rate and rhythm, S1, S2 without murmur, rub or gallop. ABDOMEN: Soft, nontender, nondistended, normoactive bowel sounds, no guarding, no rebound, no masses appreciated. EXTREMITIES: 2+ pulses, warm, well-perfused, no edema. NEUROLOGICAL: Cranial nerves II through XII grossly intact. Normal speech. PSYCH: Normal mood, normal affect. SKIN: Warm, dry, normal turgor, no rashes or lesions noted. LABS CBCD WBC 6.0 K/mm3 (4.0-10.0) 12/23/18 06:35 RBC 4.97 M/mm3 (4.00-5.60) 12/23/18 06:35 Hgb 14.8 GM/dL (11.7-16.9) 12/23/18 06:35 Hct 42.5 % (35.4-49) 12/23/18 06:35 MCV 85.4 fl (80-96) 12/23/18 06:35 MCHC 34.9 g/dl (32.0-35.9) 12/23/18 06:35 RDW 13.4 % (11.9-15.9) 12/23/18 06:35 Plt Count 181 K/MM3 (134-434) 12/23/18 06:35 MPV 8.6 fl (7.5-11.1) 12/23/18 06:35 CMP Sodium 138 mmol/L (136-145) 12/23/18 06:35 Potassium 3.3 mmol/L (3.5-5.1) L 12/23/18 06:35 Chloride 104 mmol/L (98-107) 12/23/18 06:35 Carbon Dioxide 29 mmol/L (21-32) 12/23/18 06:35 Anion Gap 5 MMOL/L (8-16) L 12/23/18 06:35 BUN 18 mg/dL (7-18) 12/23/18 06:35 Creatinine 1.3 mg/dL (0.55-1.3) 12/23/18 06:35 Creat Clearance w eGFR 57.10 (>60) 12/23/18 06:35 Random Glucose 99 mg/dL (74-106) 12/23/18 06:35 Calcium 8.5 mg/dL (8.5-10.1) 12/23/18 06:35 Total Bilirubin 0.6 mg/dL (0.2-1) 12/23/18 06:35 AST 16 U/L (15-37) 12/23/18 06:35 ALT 34 U/L (13-61) 12/23/18 06:35 Alkaline Phosphatase 44 U/L (45-117) L 12/23/18 06:35 Total Protein 6.6 g/dl (6.4-8.2) 12/23/18 06:35 Albumin 3.6 g/dl (3.4-5.0) 12/23/18 06:35 CARDIAC ENZYMES Creatine Kinase 138 U/L (26-308) 12/22/18 07:30 Troponin I 0.02 ng/ml (0.00-0.05) 12/22/18 18:00 Home Medications Medication Instructions Recorded Hydrochlorothiazide [Hctz -] 50 mg PO DAILY 03/27/17 Lisinopril [Zestril] 30 mg PO DAILY 03/27/17 EKG: sinus, LVH with strain pattern CXR: no congestion Echo 12/2018: mild LVH (conc), nl LVSF (50-55%). nl RV. mild MR/TR Duplex is negative. HOSPITAL COURSE: Date of Admission:12/22/18 Date of Discharge: 12/23/18 Patient is a 58yo male with PMHx of HTN, gout presents to ED with MARSH, vomiting , and elevated BP. At the time of interview, patient was feeling better, headache and blood pressure improved post IV Tylenol. # hypertensive Urgency , stopped the Hctz due to electrolyte imbalance. increased lisinopril to 40mg increased from 30mg better BP , stop Hctz. Can't give him Norvasc since having swelling of LEs. 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 # Acute hyponatremia: will discontinue HCTZ # Acute hypokalemia: Hold Hctz , 40meq kdur x 1 . # Elevated BS will monitor on admission but now 99, suggested to control his fat intake and weight loss. Minutes to complete discharge: 35 Discharge Summary Reason For Visit: HYPERTENSIVE CRISIS,HEADACHE Current Active Problems Abnormal EKG (Acute) Hypertensive crisis (Acute) Hypokalemia (Acute) Condition: Improved - Instructions - Home Medications Comprehensive Discharge Medication List: Ambulatory Orders Hydrochlorothiazide [Hctz -] 50 mg PO DAILY 03/27/17 Lisinopril [Zestril] 30 mg PO DAILY 03/27/17 This patient is new to me today: No Emergency Visit: Yes ED Registration Date: 12/22/18 Care time: The patient presented to the Emergency Department on the above date and was hospitalized for further evaluation of their emergent condition. Critical Care patient: No - Discharge Referral Referred to [facility] Med P.C.: No
[2018-12-23] MEDS ORDERED: POTASSIUM CHLORIDE TABS 20 MEQ TABLET.ER (FP) PO ONE (11:18)
[2018-12-23 14:29] VITALS: BP 161/98; PULSE 72
--- NOTE | 2018-12-23 18:10 | EKG ---
Test Reason : Blood Pressure : / mmHG Vent. Rate : 055 BPM Atrial Rate : 055 BPM P-R Int : 166 ms QRS Dur : 110 ms QT Int : 442 ms P-R-T Axes : 053 -03 125 degrees QTc Int : 422 ms SINUS BRADYCARDIA MINIMAL VOLTAGE CRITERIA FOR LVH, MAY BE NORMAL VARIANT T WAVE ABNORMALITY, CONSIDER LATERAL ISCHEMIA ABNORMAL ECG WHEN COMPARED WITH ECG OF 27-MAR-2017 18:36, T WAVE INVERSION NOW EVIDENT IN LATERAL LEADS Confirmed by MD TONY, AJ ([id number] on 12/23/2018 6:10:00 PM Referred By: Confirmed By:AJ JIMENEZ MD
== END 2018-12-23 15:50 | disposition home or self-care (01) ==
LOC: JER 06:39 → JERBED 13:51 → J4W 16:22
PROVIDERS: ADMIT Internal Medicine; ATTEND Internal Medicine
PROC: 3E0333Z Introduction of Anti-inflammatory into Peripheral Vein, Percutaneous Approach (ICD-10-PCS; principal; 2018-12-22)
PROC: 3E033NZ Introduction of Analgesics, Hypnotics, Sedatives into Peripheral Vein, Percutaneous Approach (ICD-10-PCS; 2018-12-22)
PROC: 3E033GC Introduction of Other Therapeutic Substance into Peripheral Vein, Percutaneous Approach (ICD-10-PCS; 2018-12-22)
DX: I16.9 Hypertensive crisis, unspecified (principal); I16.0 Hypertensive urgency; E87.1 Hypo-osmolality and hyponatremia; E87.6 Hypokalemia; R73.9 Hyperglycemia, unspecified; R94.31 Abnormal electrocardiogram [ECG] [EKG]; R51 Headache; M10.9 Gout, unspecified
CPT/HCPCS: 36415; 70450-TC; 71045-TC-FY; 80048; 80053; 82550; 83735; 84100; 84484; 85025; 93005; 93010; 93306-TC; 93970-TC; 99284-25; G0378; J0131

== ENCOUNTER 2020-03-30 16:59 | Inpatient (IN) | payer BC ==
[2020-03-30] MEDS ORDERED: ACETAMINOPHEN 325 MG TABLET (FP) PO ONE (17:33)
[2020-03-30 17:54] LABS: BASO % 0.3 % (0-2.0); EOS % 0.1 % (0-4.5); LYMPH % 3.3 % (8-40); MCH 28.8 pg (25.7-33.7); MCHC 33.3 g/dl (32.0-35.9); MEAN CELL VOLUME 86.4 fl (80-96); MEAN PLT VOLUME 9.3 fl (7.5-11.1); NEUT % 95.3 % (42.8-82.8); PLATELET COUNT 187 K/MM3 (134-434); RBC 5.56 M/mm3 (4.00-5.60); RDW 13.8 % (11.9-15.9); WHITE BLOOD COUNT 15.1 K/mm3 (4.0-10.0)
[2020-03-30] MEDS ORDERED: KETOROLAC TROMETHAMINE 30 MG/1 ML VIAL IVPUSH ONE (17:57)
[2020-03-30] MEDS ORDERED: KETOROLAC TROMETHAMINE 15 MG/ML VIAL ONE (18:03)
[2020-03-30] MEDS ORDERED: ACETAMINOPHEN 325 MG TABLET (FP) ONE (18:03)
[2020-03-30] MEDS ORDERED: morphine CARPU-JECT 4 MG/1 ML DISP.SYRIN IVPUSH ONE (18:10)
[2020-03-30] MEDS ORDERED: morphine SULFATE 4 MG/ML VIAL ONE (18:13)
[2020-03-30 18:24] LABS: ALBUMIN 4.6 g/dl (3.4-5.0); BILIRUBIN,TOTAL 1.2 mg/dL (0.2-1); BLOOD UREA NITROGEN 20.8 mg/dL (7-18); CALCIUM 9.8 mg/dL (8.5-10.1); CREATININE 1.5 mg/dL (0.55-1.3); POTASSIUM 3.5 mmol/L (3.5-5.1); TOT PROT 7.8 g/dl (6.4-8.2)
[2020-03-30 18:34] LABS: EPI CELLS 0 /uL (0-25.1); HYALINE CASTS 1 /uL (0-3.1); PH,URINE 7.5 (5.0-8.0); URINE APPEARANCE TURBID; URINE BILIRUBIN NEGATIVE (NEGATIVE); URINE COLOR YELLOW; URINE GLUCOSE (UA) NEGATIVE (NEGATIVE); URINE KETONE TRACE (NEGATIVE); URINE LEUK ESTERASE 3+ (NEGATIVE); URINE NITRITE NEGATIVE (NEGATIVE); URINE PROTEIN 2+ (NEGATIVE); URINE RBC 204 /uL (0-23.9); URINE WBC 3990 /uL (0-25.8)
[2020-03-30] MEDS ORDERED: CEFTRIAXONE 1,000 MG in DEXTROSE 5%-WATER - 50 ML IVPB ONE (18:37)
[2020-03-30] MEDS ORDERED: CEFTRIAXONE 1 GM/50 ML BAG ONE (18:40)
[2020-03-30] MEDS ORDERED: LACTATED RINGERS SOLUTION 1,000 ML/1,000 ML INFUS.BAG IV SCH (19:00)
[2020-03-30 19:46] LABS: PLATELET ESTIMATE ADEQUATE
[2020-03-30] MEDS ORDERED: ONDANSETRON 4 MG/2 ML VIAL IVPUSH PRN (21:53)
[2020-03-30] MEDS ORDERED: DEXTROSE 5%-0.45% SALINE 1,000 ML IV SCH (22:00)
[2020-03-30] MEDS ORDERED: PHENAZOPYRIDINE HCL 100 MG TABLET (FP) PO ONE (22:13)
[2020-03-30] MEDS ORDERED: PHENAZOPYRIDINE HCL 100 MG TABLET (FP) ONE (22:15)
[2020-03-31] MEDS ORDERED: ACETAMINOPHEN 325 MG TABLET (FP) PO PRN
[2020-03-31 00:13] VITALS: BMI 26.9
[2020-03-31] MEDS: morphine SULFATE 4 MG/ML VIAL IVPUSH PRN ×4 (00:21→20:08)
[2020-03-31 08:07] LABS: BASO % 0.1 % (0-2.0); EOS % 0.1 % (0-4.5); HEMATOCRIT 42.7 % (35.4-49); HEMOGLOBIN 14.3 GM/dL (11.7-16.9); LYMPH % 6.1 % (8-40); MCHC 33.6 g/dl (32.0-35.9); MEAN CELL VOLUME 86.3 fl (80-96); MEAN PLT VOLUME 9.2 fl (7.5-11.1); NEUT % 86.7 % (42.8-82.8); PLATELET COUNT 155 K/MM3 (134-434); RBC 4.95 M/mm3 (4.00-5.60); RDW 13.6 % (11.9-15.9); WHITE BLOOD COUNT 15.6 K/mm3 (4.0-10.0)
[2020-03-31 08:36] LABS: ALBUMIN 3.8 g/dl (3.4-5.0); BILIRUBIN,TOTAL 1.3 mg/dL (0.2-1); BLOOD UREA NITROGEN 19.6 mg/dL (7-18); CALCIUM 8.7 mg/dL (8.5-10.1); CREATININE 1.4 mg/dL (0.55-1.3); TOT PROT 6.8 g/dl (6.4-8.2)
[2020-03-31 08:39] LABS: POTASSIUM 2.8 mmol/L (3.5-5.1)
[2020-03-31] MEDS ORDERED: cefTRIAXone SODIUM 1 GM VIAL ONE (08:53)
[2020-03-31] MEDS ORDERED: DEXTROSE 5%-WATER - 50 ML IVPB ONE (08:53)
[2020-03-31] MEDS ORDERED: DEXTROSE 5%-NORMAL SALINE 1,000 ML IV SCH (09:00)
[2020-03-31] MEDS: TAMSULOSIN HCL 0.4 MG CAP PO SCH (09:01)
[2020-03-31] MEDS: CARVEDILOL 25 MG TABLET (FP) PO SCH ×2 (09:01→22:18)
[2020-03-31] MEDS: CEFTRIAXONE 1 GM in DEXTROSE 5%-WATER - 50 ML IVPB SCH (09:01)
[2020-03-31] MEDS ORDERED: PHENAZOPYRIDINE HCL 100 MG TABLET (FP) PO ONE (09:24)
[2020-03-31] MEDS ORDERED: POTASSIUM CHLORIDE TABS 20 MEQ TABLET.ER (FP) PO ONE ×2 (09:28→19:18)
[2020-03-31] MEDS: KCL 10 MEQ IVPB 10 MEQ/100 ML INFUS.BAG IVPB SCH ×3 (09:55→15:02)
[2020-03-31] MEDS: oxyCODONE HCL 5 MG TABLET PO PRN ×3 (09:57→22:19)
[2020-03-31] MEDS: ACETAMINOPHEN 325 MG TABLET (FP) PO PRN ×3 (09:58→22:18)
[2020-03-31] MEDS ORDERED: PT OWN MED DRAWER 7, Y5N ONE (10:03)
[2020-03-31] MEDS: DOCUSATE SODIUM 100 MG CAPSULE (FP) PO PRN (15:01)
[2020-03-31] MEDS: LISINOPRIL 20 MG TABLET PO SCH (15:01)
[2020-03-31] MEDS: HEPARIN NA (PORCINE) 5,000 UNITS/ML 1ML VIAL SQ SCH ×2 (15:01→22:18)
[2020-03-31] MEDS: SODIUM CHLORIDE 1,000 ML IV SCH (15:07)
[2020-03-31 19:03] LABS: BLOOD UREA NITROGEN 17.1 mg/dL (7-18); CALCIUM 8.2 mg/dL (8.5-10.1); CREATININE 1.3 mg/dL (0.55-1.3); POTASSIUM 3.3 mmol/L (3.5-5.1)
[2020-03-31] MEDS: POLYETHYLENE GLYCOL 3350 119 GM BTL PO SCH (22:17)
[2020-03-31] MEDS: SENNOSIDES 8.6MG TABLET (FP) PO SCH (22:19)
[2020-04-01] MEDS: SODIUM CHLORIDE 1,000 ML IV SCH ×3 (03:53→17:59)
[2020-04-01] MEDS: HEPARIN NA (PORCINE) 5,000 UNITS/ML 1ML VIAL SQ SCH ×3 (06:21→22:46)
[2020-04-01 08:45] LABS: BASO % 0.2 % (0-2.0); EOS % 0.4 % (0-4.5); HEMATOCRIT 41.4 % (35.4-49); HEMOGLOBIN 13.8 GM/dL (11.7-16.9); LYMPH % 10.3 % (8-40); MCHC 33.3 g/dl (32.0-35.9); MEAN CELL VOLUME 87.1 fl (80-96); MEAN PLT VOLUME 9.5 fl (7.5-11.1); MONO % 5.4 % (3.8-10.2); NEUT % 83.7 % (42.8-82.8); PLATELET COUNT 144 K/MM3 (134-434); RBC 4.75 M/mm3 (4.00-5.60); RDW 13.8 % (11.9-15.9); WHITE BLOOD COUNT 11.9 K/mm3 (4.0-10.0)
[2020-04-01] MEDS ORDERED: cefTRIAXone SODIUM 1 GM VIAL ONE (09:09)
[2020-04-01] MEDS ORDERED: DEXTROSE 5%-WATER - 50 ML IVPB ONE (09:09)
[2020-04-01 09:12] LABS: ALBUMIN 3.5 g/dl (3.4-5.0); BILIRUBIN,TOTAL 1.6 mg/dL (0.2-1); BLOOD UREA NITROGEN 15.6 mg/dL (7-18); CALCIUM 8.4 mg/dL (8.5-10.1); CREATININE 1.4 mg/dL (0.55-1.3); POTASSIUM 3.6 mmol/L (3.5-5.1); TOT PROT 6.6 g/dl (6.4-8.2)
[2020-04-01] MEDS: LISINOPRIL 20 MG TABLET PO SCH (09:13)
[2020-04-01] MEDS: CARVEDILOL 25 MG TABLET (FP) PO SCH ×2 (09:13→22:46)
[2020-04-01] MEDS: DOCUSATE SODIUM 100 MG CAPSULE (FP) PO PRN (09:13)
[2020-04-01] MEDS: CEFTRIAXONE 1 GM in DEXTROSE 5%-WATER - 50 ML IVPB SCH (09:13)
[2020-04-01] MEDS: TAMSULOSIN HCL 0.4 MG CAP PO SCH (09:13)
[2020-04-01] MEDS: POLYETHYLENE GLYCOL 3350 119 GM BTL PO SCH ×2 (09:15→22:46)
[2020-04-01] MEDS: morphine SULFATE 4 MG/ML VIAL IVPUSH PRN ×2 (09:22→14:34)
[2020-04-01] MEDS: oxyCODONE HCL 5 MG TABLET PO PRN ×2 (13:44→22:45)
[2020-04-01] MEDS ORDERED: LIDOCAINE HCL 2% JELLY (5 ML/TUBE) TP ONE (16:48)
[2020-04-01] MEDS: ACETAMINOPHEN 325 MG TABLET (FP) PO PRN (22:45)
[2020-04-01] MEDS: SENNOSIDES 8.6MG TABLET (FP) PO SCH (22:46)
[2020-04-02] MEDS: HEPARIN NA (PORCINE) 5,000 UNITS/ML 1ML VIAL SQ SCH ×3 (06:25→21:28)
[2020-04-02 08:01] LABS: BASO % 0.5 % (0-2.0); EOS % 1.4 % (0-4.5); HEMATOCRIT 38.1 % (35.4-49); HEMOGLOBIN 12.7 GM/dL (11.7-16.9); LYMPH % 15.2 % (8-40); MCH 28.9 pg (25.7-33.7); MCHC 33.5 g/dl (32.0-35.9); MEAN CELL VOLUME 86.3 fl (80-96); MEAN PLT VOLUME 9.3 fl (7.5-11.1); MONO % 9.9 % (3.8-10.2); PLATELET COUNT 125 K/MM3 (134-434); RBC 4.41 M/mm3 (4.00-5.60); RDW 13.4 % (11.9-15.9); WHITE BLOOD COUNT 5.8 K/mm3 (4.0-10.0)
[2020-04-02 08:15] LABS: BLOOD UREA NITROGEN 14.6 mg/dL (7-18); CALCIUM 8.1 mg/dL (8.5-10.1); CREATININE 1.3 mg/dL (0.55-1.3); POTASSIUM 3.4 mmol/L (3.5-5.1)
[2020-04-02] MEDS ORDERED: DEXTROSE 5%-WATER - 50 ML IVPB ONE (08:58)
[2020-04-02] MEDS ORDERED: cefTRIAXone SODIUM 1 GM VIAL ONE (08:58)
[2020-04-02] MEDS: CEFTRIAXONE 1 GM in DEXTROSE 5%-WATER - 50 ML IVPB SCH (09:00)
[2020-04-02] MEDS: DOCUSATE SODIUM 100 MG CAPSULE (FP) PO PRN (09:00)
[2020-04-02] MEDS: LISINOPRIL 20 MG TABLET PO SCH (09:00)
[2020-04-02] MEDS: TAMSULOSIN HCL 0.4 MG CAP PO SCH (09:00)
[2020-04-02] MEDS: CARVEDILOL 25 MG TABLET (FP) PO SCH ×2 (09:00→21:28)
[2020-04-02] MEDS: POLYETHYLENE GLYCOL 3350 119 GM BTL PO SCH ×2 (09:02→21:28)
[2020-04-02] MEDS: SODIUM CHLORIDE 1,000 ML IV SCH (14:17)
[2020-04-02] MEDS ORDERED: POTASSIUM CHLORIDE TABS 20 MEQ TABLET.ER (FP) PO ONE (14:26)
[2020-04-02] MEDS: ACETAMINOPHEN 325 MG TABLET (FP) PO PRN (19:40)
[2020-04-02] MEDS: SENNOSIDES 8.6MG TABLET (FP) PO SCH (21:28)
[2020-04-03] MEDS: HEPARIN NA (PORCINE) 5,000 UNITS/ML 1ML VIAL SQ SCH (05:56)
[2020-04-03] MEDS ORDERED: DEXTROSE 5%-WATER - 50 ML IVPB ONE (09:02)
[2020-04-03] MEDS ORDERED: cefTRIAXone SODIUM 1 GM VIAL ONE (09:02)
[2020-04-03] MEDS: CARVEDILOL 25 MG TABLET (FP) PO SCH (09:06)
[2020-04-03] MEDS: CEFTRIAXONE 1 GM in DEXTROSE 5%-WATER - 50 ML IVPB SCH (09:06)
[2020-04-03] MEDS: TAMSULOSIN HCL 0.4 MG CAP PO SCH (09:06)
[2020-04-03] MEDS: LISINOPRIL 20 MG TABLET PO SCH (09:06)
[2020-04-03] MEDS: DOCUSATE SODIUM 100 MG CAPSULE (FP) PO PRN (09:06)
[2020-04-03] MEDS: POLYETHYLENE GLYCOL 3350 119 GM BTL PO SCH (09:08)
[2020-04-03 09:09] LABS: CALCIUM 8.4 mg/dL (8.5-10.1); CREATININE 1.2 mg/dL (0.55-1.3); POTASSIUM 3.8 mmol/L (3.5-5.1)
[2020-04-03 14:14] VITALS: BP 146/88; PULSE 60; TEMP 98.9
== END 2020-04-03 16:35 | disposition home or self-care (01) | DRG 728 ==
LOC: JER 16:59 → JERBED 21:21 → J6S 23:51
PROVIDERS: ADMIT Internal Medicine; ATTEND Internal Medicine
DX: N41.3 Prostatocystitis (principal); N39.0 Urinary tract infection, site not specified; N17.9 Acute kidney failure, unspecified; R10.9 Unspecified abdominal pain; D72.829 Elevated white blood cell count, unspecified; N20.0 Calculus of kidney; E86.0 Dehydration; Z90.5 Acquired absence of kidney; N40.0 Benign prostatic hyperplasia without lower urinary tract symptoms; Z85.528 Personal history of other malignant neoplasm of kidney; R33.9 Retention of urine, unspecified; E87.6 Hypokalemia; N18.3 Chronic kidney disease, stage 3 (moderate); I10 Essential (primary) hypertension; E66.9 Obesity, unspecified; Z68.26 Body mass index [BMI] 26.0-26.9, adult
CPT/HCPCS: 36415; 71045-TC-FY; 74176-TC; 80048; 80053; 81003; 83605; 84153; 85025; 85651; 86140; 87040; 87086; 87186; 93005; 93010; 99285-25; J1644; U0003

== ENCOUNTER 2021-01-09 02:51 | Inpatient (IN) | payer BC ==
[2021-01-09] MEDS ORDERED: ACETAMINOPHEN 1000 MG/100 ML VIAL (NON FORMULARY) IVPB ONE (03:25)
[2021-01-09] MEDS ORDERED: LACTATED RINGERS SOLUTION 1000 ML INFUS.BAG IV ONE ×2 (03:25→06:22)
[2021-01-09] MEDS ORDERED: METOCLOPRAMIDE HCL INJECTION 10 MG/2 ML VIAL IVPUSH ONE (03:25)
[2021-01-09] MEDS ORDERED: ACETAMINOPHEN INJECTION 100 ML IVPB ONE (03:44)
[2021-01-09] MEDS ORDERED: METOCLOPRAMIDE HCL INJECTION 10 MG/2 ML VIAL ONE (03:44)
[2021-01-09 03:56] LABS: BASO % 0.6 % (0-2.0); EOS % 1.3 % (0-4.5); HEMATOCRIT 42.7 % (35.4-49); HEMOGLOBIN 14.6 GM/dL (11.7-16.9); LYMPH % 13.4 % (8-40); MCH 30.2 pg (25.7-33.7); MCHC 34.2 g/dl (32.0-35.9); MEAN CELL VOLUME 88.2 fl (80-96); MEAN PLT VOLUME 8.3 fl (7.5-11.1); MONO % 6.6 % (3.8-10.2); NEUT % 78.1 % (42.8-82.8); PLATELET COUNT 189 K/MM3 (134-434); RBC 4.84 M/mm3 (4.00-5.60); RDW 13.5 % (11.9-15.9); WHITE BLOOD COUNT 15.1 K/mm3 (4.0-10.0)
[2021-01-09 04:03] LABS: PH,URINE 6.5 (5.0-8.0); URINE APPEARANCE CLEAR; URINE BILIRUBIN NEGATIVE (NEGATIVE); URINE COLOR YELLOW; URINE GLUCOSE (UA) NEGATIVE (NEGATIVE); URINE KETONE NEGATIVE (NEGATIVE); URINE LEUK ESTERASE NEGATIVE (NEGATIVE); URINE NITRITE NEGATIVE (NEGATIVE); URINE PROTEIN NEGATIVE (NEGATIVE); URINE UROBILINOGEN 0.2 mg/dL (0.2-1.0)
[2021-01-09 04:06] LABS: INR 0.83 (0.83-1.09); PROTHROMBIN TIME (PATIENT) 10.1 SEC (9.7-13.0)
[2021-01-09 04:08] LABS: ACTIVATED PTT 25.4 SECONDS (25.2-36.5)
[2021-01-09 04:36] LABS: POTASSIUM 3.9 mmol/L (3.5-5.1)
[2021-01-09 04:38] LABS: CALCIUM 9.5 mg/dL (8.5-10.1)
[2021-01-09 04:39] LABS: ALBUMIN 4.7 g/dl (3.4-5.0); BLOOD UREA NITROGEN 25.7 mg/dL (7-18)
[2021-01-09 04:42] LABS: CREATININE 1.9 mg/dL (0.55-1.3)
[2021-01-09 04:43] LABS: BILIRUBIN,TOTAL 0.3 mg/dL (0.2-1); TOT PROT 8.1 g/dl (6.4-8.2)
[2021-01-09 10:50] LABS: POTASSIUM 3.7 mmol/L (3.5-5.1)
[2021-01-09 10:54] LABS: CREATININE 1.8 mg/dL (0.55-1.3)
[2021-01-09 10:55] LABS: CALCIUM 9.3 mg/dL (8.5-10.1)
[2021-01-09] MEDS ORDERED: LISINOPRIL 20 MG TABLET PO ONE (12:11)
[2021-01-09] MEDS ORDERED: CARVEDILOL 25 MG TABLET (FP) PO ONE (12:11)
[2021-01-09] MEDS ORDERED: NIFEdipine 10 MG CAPSULE (FP) PO ONE (12:13)
[2021-01-09] MEDS ORDERED: ACETAMINOPHEN 325 MG TABLET (FP) PO PRN (13:32)
[2021-01-09] MEDS ORDERED: SODIUM CHLORIDE 1,000 ML IV SCH ×2 (13:45→16:16)
[2021-01-09] MEDS ORDERED: CARVEDILOL 12.5 MG TABLET (FP) ONE (14:23)
[2021-01-09] MEDS ORDERED: NIFEdipine E.R. 30 MG TABLET ONE (14:24)
[2021-01-09] MEDS ORDERED: TAMSULOSIN HCL 0.4 MG CAP ONE (16:33)
[2021-01-09] MEDS: SODIUM CHLORIDE 0.45% 1,000 ML IV SCH ×2 (16:39→22:09)
[2021-01-09] MEDS: TAMSULOSIN HCL 0.4 MG CAP PO SCH (16:39)
[2021-01-09] MEDS: CARVEDILOL 25 MG TABLET (FP) PO SCH (22:09)
[2021-01-10 00:24] VITALS: BMI 40.8
[2021-01-10] MEDS: SODIUM CHLORIDE 0.45% 1,000 ML IV SCH (05:57)
[2021-01-10] MEDS ORDERED: TAMSULOSIN HCL 0.4 MG CAP PO SCH (08:30)
[2021-01-10 09:35] LABS: BASO % 0.7 % (0-2.0); EOS % 3.5 % (0-4.5); HEMATOCRIT 39.2 % (35.4-49); HEMOGLOBIN 13.4 GM/dL (11.7-16.9); LYMPH % 32.7 % (8-40); MCH 30.4 pg (25.7-33.7); MCHC 34.2 g/dl (32.0-35.9); MEAN CELL VOLUME 88.7 fl (80-96); MEAN PLT VOLUME 8.8 fl (7.5-11.1); MONO % 10.2 % (3.8-10.2); NEUT % 52.9 % (42.8-82.8); PLATELET COUNT 155 K/MM3 (134-434); RBC 4.42 M/mm3 (4.00-5.60); RDW 13.2 % (11.9-15.9); WHITE BLOOD COUNT 6.1 K/mm3 (4.0-10.0)
[2021-01-10 09:44] LABS: POTASSIUM 3.6 mmol/L (3.5-5.1)
[2021-01-10] MEDS ORDERED: NIFEdipine E.R 60 MG TABLET PO SCH (10:00)
[2021-01-10 10:04] LABS: CALCIUM 8.6 mg/dL (8.5-10.1)
[2021-01-10 10:05] LABS: BLOOD UREA NITROGEN 14.7 mg/dL (7-18)
[2021-01-10 10:08] LABS: CREATININE 1.3 mg/dL (0.55-1.3)
[2021-01-10 10:09] LABS: BILIRUBIN,TOTAL 1.1 mg/dL (0.2-1); TOT PROT 6.5 g/dl (6.4-8.2)
[2021-01-10 10:11] LABS: ALBUMIN 3.6 g/dl (3.4-5.0)
[2021-01-10] MEDS: TAMSULOSIN HCL 0.4 MG CAP PO SCH (10:38)
[2021-01-10] MEDS: CARVEDILOL 25 MG TABLET (FP) PO SCH (10:38)
[2021-01-10 11:37] VITALS: BP 149/94; PULSE 65; TEMP 97.8
== END 2021-01-10 12:58 | disposition home or self-care (01) | DRG 694 ==
LOC: JER 02:51 → JERBED 12:41 → J5S 20:52
PROVIDERS: ADMIT Internal Medicine; ATTEND Internal Medicine
DX: N13.2 Hydronephrosis with renal and ureteral calculous obstruction (principal); N17.9 Acute kidney failure, unspecified; I10 Essential (primary) hypertension; N40.0 Benign prostatic hyperplasia without lower urinary tract symptoms; M10.9 Gout, unspecified; Z85.53 Personal history of malignant neoplasm of renal pelvis; D72.829 Elevated white blood cell count, unspecified
CPT/HCPCS: 36415; 71045-TC-FY; 74177-TC; 76775-TC; 80048; 80053; 81003; 83605; 83690; 85025; 85610; 85730; 93005; 93010; 99285-25; C9803; J0131; U0003; U0005